=== PATIENT | male | born 1990 | race Caucasian/White ===

== ENCOUNTER 2017-08-21 08:36 | Emergency (ER) | payer OTHER, BC ==
[~2017-08-21] VITALS: Ht 188 cm; Wt 137.8 kg
[2017-08-21 10:50] LABS: EOSINOPHIL (%) 2.5 % (0-5); EOSINOPHIL COUNT 0.2 K/uL (0-0.3); HEMATOCRIT 43.5 % (38.0-50.0); IMMATURE GRANULOCYTE (%) 0.3 % (0.0-0.7); INSTRUMENT ABS NEUTROPHIL CT 5.4 K/uL; MCH 29.1 PG (29.0-34.0); MCHC 33.1 G/DL (30.0-36.0); MCV 88.1 FL (86-99); MEAN PLAT.VOLUME 10.8 uM^3 (9.0-12.4); MONOCYTE (%) 6.9 % (3-12); MONOCYTE COUNT 0.5 K/uL (0-0.8); NEUTROPHIL (%) 75.8 % (45-76); NEUTROPHIL COUNT 5.4 K/uL (1.8-6.4); PLATELET COUNT 142 K/uL (156-360); RBC DIS.WIDTH-CV 12.1 % (11.8-14.6); RBC DIS.WIDTH-SD 39.2 % (39-53); RED BLOOD COUNT 4.94 M/uL (4.00-5.50); WHITE BLOOD COUNT 7.1 K/uL (4.1-10.2)
[2017-08-21 11:00] LABS: CHLORIDE 107 mEq/L (99-109); POTASSIUM 4.3 mEq/L (3.7-5.4); SODIUM 138 mEq/L (136-147)
[2017-08-21 11:02] VITALS: BP 130/88
[2017-08-21 11:02] LABS: GLUCOSE 86 mg/dL (70-99)
[2017-08-21 11:03] LABS: ANION GAP 8 MEQ/L (2-14)
[2017-08-21 11:04] LABS: TOTAL BILIRUBIN 0.6 mg/dL (0.0-1.0)
[2017-08-21 11:06] LABS: ALKALINE PHOSPHATASE 119 IU/L (3-129); GFR ESTIMATE (CALCULATED) > 59 mL/min/
[2017-08-21 11:07] LABS: UREA NITROGEN (BUN) 19 mg/dL (9-23)
[2017-08-21 11:08] LABS: DIRECT BILIRUBIN 0.2 mg/dL (0.0-0.3)
[2017-08-22 11:22] LABS: AHBS INDEX > 1000.00; HPCA INDEX 0.09
[2017-08-22 11:23] LABS: HIV INDEX 0.14; HIV-1/2 AB/AG COMBO Nonreactive
[2017-08-22 11:30] LABS: HEPATITIS B SURFACE ANTIBODY REACTIVE
== END 2017-08-21 11:04 | disposition home or self-care (01) ==
LOC: EME 08:36
PROVIDERS: Nurse Practitioner Family
DX: S51.851A Open bite of right forearm, initial encounter (principal); Y04.1XXA Assault by human bite, initial encounter; Y93.89 Activity, other specified; Y92.89 Other specified places as the place of occurrence of the external cause; Y99.0 Civilian activity done for income or pay
CPT/HCPCS: 80048; 80076; 85025; 86703; 86706; 86803; 99281; 99284